=== PATIENT | male | born 1945 | race Caucasian/White ===

== ENCOUNTER → 2017-09-13 | Outpatient (CLI) | payer MEDICARE | END | disposition home or self-care (01) | LOC: CFH 06:41 | PROVIDERS: ATTEND Internal Medicine Cardiovascular Disease | DX: I08.0 Rheumatic disorders of both mitral and aortic valves (principal); I45.10 Unspecified right bundle-branch block | CPT/HCPCS: 78452; 93017; 93306; A9502 ==

== ENCOUNTER → 2020-02-17 | Outpatient (CLI) | payer MEDICARE | END | disposition home or self-care (01) | LOC: CVU 07:00 | PROVIDERS: ATTEND Family Medicine | DX: I83.893 Varicose veins of bilateral lower extremities with other complications (principal); M79.669 Pain in unspecified lower leg; Z86.718 Personal history of other venous thrombosis and embolism | CPT/HCPCS: 93922; 93970 ==

== ENCOUNTER 2021-04-22 08:21 | Outpatient (CLI) | payer MEDICARE | END 2021-04-22 23:59 | disposition home or self-care (01) | LOC: RAD 08:21 | PROVIDERS: ATTEND Surgery | DX: M51.36 Other intervertebral disc degeneration, lumbar region (principal); M48.07 Spinal stenosis, lumbosacral region | CPT/HCPCS: 72100 ==